=== PATIENT | male | born 2000 | race Caucasian/White ===

== ENCOUNTER 2023-10-03 10:48 | Outpatient (CLI) | payer OTHER, BC | END 2023-10-03 10:49 | disposition home or self-care (01) | LOC: CT 10:48 | PROVIDERS: ATTEND Internal Medicine Gastroenterology | DX: E73.9 Lactose intolerance, unspecified (principal); R10.13 Epigastric pain; N13.0 Hydronephrosis with ureteropelvic junction obstruction; K63.89 Other specified diseases of intestine | CPT/HCPCS: 74160 ==

== ENCOUNTER 2023-12-11 12:38 | Outpatient (CLI) | payer BC, OTHER ==
[~2023-12-11 12:38] MED LIST: Iopamidol 370 76% 100 ML VIAL ONE
[2023-12-11] MEDS ORDERED: Furosemide 40 MG (4 mL) VIAL ONE (13:57)
[2023-12-11] MEDS ORDERED: ALPRAZolam 0.5 MG TAB PO SCH (14:00)
== END 2023-12-11 12:39 | disposition home or self-care (01) ==
LOC: NM 12:38
PROVIDERS: ATTEND Urology
DX: N13.1 Hydronephrosis with ureteral stricture, not elsewhere classified (principal)
CPT/HCPCS: 74174; 78708; A4641; A9562; J1940; Q9967

== ENCOUNTER 2024-01-02 12:40 | Emergency (ER) | payer OTHER, BC ==
[2024-01-02 14:11] LABS: ALT (SGPT) 35 U/L (8-55); AST (SGOT) 16 U/L (5-34); Albumin 4.3 g/dL (3.5-5.0); Alkaline Phosphatase 97 U/L (40-110); Anion Gap 11 mmol/L (10-20); BUN (Urea Nitrogen) 12 mg/dL (8.9-20.6); Bilirubin, Total 0.4 mg/dL (0.2-1.2); Calc. Creatinine Clearance 0 mL/min (70-130); Calcium 9.5 mg/dL (7.8-10.44); Carbon Dioxide 28 mmol/L (22-29); Chloride 104 mmol/L (98-107); Estimated GFR 104; Globulin 3.3 g/dL (2.4-3.5); Glucose 83 mg/dL (70-105); Protein, Total 7.6 g/dL (6.0-8.3); Sodium 139 mmol/L (136-145)
[2024-01-02 14:30] LABS: #Basophils 0.05 10x3/uL (0.0-0.2); %Basophils 0.6 % (0.0-1.0); %Eosinophils 1.9 % (0.0-10.0); %Lymphocytes 17.4 % (21.0-51.0); %Monocytes 5.3 % (0.0-10.0); %Neutrophils 74.5 % (42.0-75.0); Hematocrit 45.5 % (42.0-52.0); Hemoglobin 15.7 g/dL (14.0-18.0); Mean Corpuscular HGB CONC 34.5 g/dL (32.0-36.0); Mean Corpuscular Hemoglobin 28.9 pg (27.0-31.0); Mean Corpuscular Volume 83.6 fL (78.0-98.0); Platelet Count 293 10x3/uL (130-400); RBC Distribution Width 12.1 % (11.5-14.5); Red Blood Cell (RBC) Count 5.44 mill/uL (4.70-6.10)
[2024-01-02 14:46] LABS: Troponin I Less than 0.010 ng/mL (< 0.028)
== END 2024-01-02 15:18 | disposition home or self-care (01) ==
LOC: ERS 12:40
DX: M25.562 Pain in left knee (principal)
CPT/HCPCS: 36415; 71046; 80053; 83880; 84484; 85025; 93005

== ENCOUNTER 2024-10-30 14:52 | Emergency (ER) | payer BC, OTHER, SELFPAY ==
[2024-10-30] MEDS ORDERED: Acetaminophen 500 MG TAB ONE (15:57)
== END 2024-10-30 16:06 | disposition home or self-care (01) ==
LOC: ERS 14:52
DX: G44.209 Tension-type headache, unspecified, not intractable (principal); S16.1XXA Strain of muscle, fascia and tendon at neck level, initial encounter; R29.700 NIHSS score 0; V89.2XXA Person injured in unspecified motor-vehicle accident, traffic, initial encounter; Y93.89 Activity, other specified
CPT/HCPCS: 99283